=== PATIENT | female | born 1945 | race Caucasian/White ===

== ENCOUNTER 2020-06-30 08:45 | Emergency (ER) | payer OTHER ==
--- OUTSIDE RECORDS SUMMARY | 2020-06-30 08:49 | XMS REPORT | Continuity of Care Document ---
:1945 Author Organization [facility] t Address [address] [place] [address] Care Team Providers Name Role Phone MEGAN Primary Care Physician Unavailable Ruben LAWLER Attending Clinician Veronica TALLEY Attending Clinician Unavailable JETT Attending Clinician Unavailable Radha MELCHOR, L Attending Clinician Unavailable Veronica Talley MD Attending Clinician Josr LAWLER, F Attending Clinician Dany LALWER Attending Clinician Jett COATS Attending Clinician Doctor Unassigned, Name Attending Clinician Unavailable Roxana LAWLER, H Attending Clinician Louie LAWLER Attending Clinician Jennifer MURRAY Attending Clinician Christian LAWLER Attending Clinician Naseem RN, A Attending Clinician Unavailable Chetan COATS Attending Clinician Mariah COATS Attending Clinician Unavailable Clayton MELCHOR Attending Clinician Unavailable Gabe COATS Attending Clinician Diaz MELCHOR Attending Clinician Unavailable Lowell BAKER Attending Clinician Unavailable Megan LAWLER Attending Clinician Bertram RN, A Attending Clinician AHMET Attending Clinician Unavailable Ahmet COATS Attending Clinician Payers Payer Name Policy Type Policy Effective Expiration Source Number Date Date MEDICAREMEDICARE PART A [id number] 2008 MD Purcell AND 00:00:00 [id number] 2007-Pr -[phone] , [place] [id number] 2011 MD Hardik rice TRADITIONALMEDICAID [place] 00:00:00 TRADITIONAL STAR PLUS [id number] 2011-Pre sentMedicaid Problems Condition Condition Condition Status Onset Resolution Last Treating Co mments Source Name Details Category Date Date Treatment Clinician Date Personal Personal Disease Active 2019-03 history of history of 0-14 An derso antineopla antineopla 00:00: n stic stic 00 chemothera chemothera py py Cancer Cancer Disease Active MD with lung with lung 9-13 Mateus rso metastasis metastasis 00:00: n 00 Diaphragma Diaphragma Disease Active M D tic hernia tic hernia 6-10 An derso 00:00: n 00 Gastroesop Gastroesop Disease Active M D hageal hageal 6-10 Anderso reflux reflux 00:00: n disease disease 00 Iron Iron Disease Active MD deficiency deficiency 6-10 An derso 00:00: n 00 Peripheral Peripheral Disease Active M D arterial arterial 6-10 Luis Manuel o occlusive occlusive 00:00: n disease disease 00 Primary Primary Disease Active hyperparat hyperparat 6-10 An derso hyroidism hyroidism 00:00: n 00 Breast Breast Disease Active MD cancer cancer 8-21 Anderso screening screening 00:00: n 00 Portal Portal Disease Active 2016-03 hypertensi hypertensi 0-12 An derso on on 00:00: n 00 Cirrhosis Cirrhosis Disease Active 2016-03 of liver of liver 0-12 Luis Manuel o 00:00: n 00 History of History of Disease Active M D external external 3-25 Luis Manuel o beam beam 00:00: n radiation radiation 00 therapy therapy Current Current Disease Active use of use of 5-31 Anderso antiplatel antiplatel 00:00: n et et 00 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 5-31 Luis Manuel o mellitus mellitus 00:00: n without without 00 complicati complicati on on Bradycardi Bradycardi Disease Active M D a a 07-30 Anderso 00:00: n 00 Hypertensi Hypertensi Disease Active M D on on 07-26 Anderso 00:00: n 00 Coronary Coronary Disease Active arterioscl arterioscl 07-26 An derso erosis erosis 00:00: n 00 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 07-26 Mateus rso 00:00: n 00 Rosacea Rosacea Disease Active 07-26 Anderso 00:00: n 00 Gastric Gastric Disease Active reflux reflux 07-26 Anderso 00:00: n 00 Glaucoma Glaucoma Disease Active 07-26 Anderso 00:00: n 00 Malignant Malignant Disease Active neoplasm neoplasm 07-22 Luis Manuel o of of 00:00: n endometriu endometriu 00 m m H/O: H/O: Disease Active Stroke in Stroke in 07-22 Mateus rso last year last year 00:00: n 00 Abdominal Abdominal Disease Active aortic aortic 07-22 Anderso aneurysm aneurysm 00:00: n without without 00 rupture rupture TIA TIA Disease Active 04-02 Anderso 00:00: n 00 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 0-07 An derso glaucoma glaucoma 00:00: n 00 Renal Renal Disease Active Overview: stone stone 03-02 Kidney Anderso 00:00: stones n 00 again recently, treated with lithotrip sy Cerebrovas Cerebrovas Disease Active M D cular cular Anderso accident accident n (aka (aka Cerebral Cerebral vascular vascular accident) accident) History of History of Disease Resolve 2019-12-14 2019-12-14 malignant malignant d 2-20 00:00:00 22:28:18 Anderso neoplasm neoplasm 00:00: n of of 00 endometriu endometriu m m Alma' Alma' Disease Resolve 2019-12-14 2019-12-14 s s d 3-22 00:00:00 22:28:30 Luis Manuel o thyroiditi thyroiditi 00:00: n s s 00 Metastatic Metastatic Disease Resolve 2019-12-14 2019-12-14 cancer to cancer to d 08-27 00:00:00 22:28:11 Anderso intrapelvi intrapelvi 00:00: n c lymph c lymph 00 nodes nodes Solitary Solitary Disease Resolve 2016-032019-11-14 2019-11-14 pulmonary pulmonary d 0-12 00:00:00 19:03:04 Anderso nodule nodule 00:00: n 00 Allergies, Adverse Reactions, Alerts This patient has no known allergies or adverse reactions. Family History Family Member Diagnosis Comments Start Date Stop Date Source Natural brother Heart disease Natural brother Melanoma MD Issa on Natural daughter Hypertension And karel Natural father Heart disease MD Mateus thomson Natural mother Heart disease MD Mateus thomson Social History Social Habit Start Date Stop Date Quantity Comments Source Sex Assigned At MD Issa on Tobacco use and 2019-11-08 2019-11-08 Never used MD Issa on exposure 00:00:00 00:00:00 Alcohol intake 2019-11-08 2019-11-08 Current MD Hardik rice 00:00:00 00:00:00 non-drinker of alcohol (finding) Smoking Status Start Date Stop Date Source Never smoker MD Purcell Medications Ordered Filled Start Stop Current Ordering Indication Dosage Frequency Signature Comments Components Source Medication Medication Date Date Medication? Clinician (SIG) Name Name brinzolamid 2019-03 Yes 1[drp] Apply 1 M D e (AZOPT) 1 0-20 drop to Umesh so % 18:52: eye twice n ophthalmic 50 daily. suspension BRIMONIDINE 2019-03 Yes 1[drp] Apply 1 M D TARTRATE/TI 0-20 drop to Umesh so MOLOL 18:52: eye twice n (COMBIGAN 50 daily. OPHTHALMIC) doxazosin 2019-03 Yes 2mg Take 2 mg MD (CARDURA) 2 0-20 by mouth Mateus rso mg tablet 18:52: daily. n 50 BIMATOPROST 2019-03 Yes 1[drp] Apply 1 M D (LUMIGAN 0-20 drop to Anderso OPHTHALMIC) 18:52: eye daily. n 50 metoprolol 2019-03 Yes 50mg Take 50 mg M D succinate 0-20 by mouth Luis Manuel o (TOPROL XL) 18:52: daily. n 50 mg 24 hr 50 tablet cholecalcif 2019-03 Yes 2000mg Take 2,000 MD celia, 0-20 mg by Anderso vitamin D3, 18:52: mouth n 2,000 unit 50 daily. cap KRILL/OM3/D 2019- Yes 1{capsu Take 1 M D DISLA/EPA/OM6/ 0-20 le} capsule by An derso LIP/ASTX 18:52: mouth at n (KRILL OIL, 50 bedtime. OMEGA 3 AND 6, ORAL) aspirin 81 2019-03 Yes 81mg Take 81 mg M D mg EC 0-20 by mouth Anderso tablet 18:52: daily. n 50 TURMERIC 2019-03 Yes 1{tbl} Take 1 MD ORAL 0-20 tablet by Anderso 18:52: mouth n 50 daily. ranitidine 2020- No 150mg Take 150 M D (ZANTAC) 8-24 08-24 mg by Anderso 150 MG 17:14: 00:00 mouth as n capsule 35 :00 needed for indigestio n or heartburn. 2020- No Take by 25/iron 8-24 08-24 mouth. Anderso fum/folic/d 17:14: 00:00 n disla 31 :00 (-1 ORAL) nystatin Yes Intertrigo TID to M D (MYCOSTATIN 8-24 rash in Umesh so ) 100,000 00:00: skin n units/g 00 creases cream nystatin Yes History of Apply (MYCOSTATIN 7-01 external topically Anderso ) 100,000 00:00: beam to n units/g 00 radiation affected powder therapy area(s) twice daily. nystatin 2019- No Intertrigo TID to MD (MYCOSTATIN 2-17 08-24 rash in Mateus rso ) 100,000 00:00: 00:00 skin n units/g 00 :00 creases cream LUMIGAN 2016-0 Yes INT 1 GTT 0.01 % 5-29 IN OU HS. Anderso ophthalmic 00:00: n drops 00 Vital Signs Vital Name Observation Time Observation Value Comments Source Systolic blood 2019-11-08 17:20:00 168 mm[Hg] pt's baseline, MD Ching nderson pressure asymptomatic, aware. Diastolic blood 2019-11-08 17:20:00 79 mm[Hg] pt's baseline, MD Purcell pressure asymptomatic, aware. Heart rate 2019-11-08 17:20:00 54 /min asymptomatic, MD Mateus thomson baseline Respiratory rate 2019-11-08 17:20:00 16 /min MD Humza gray Oxygen saturation in 2019-11-08 17:20:00 98 /min MD Purcell Arterial blood by Pulse oximetry Body temperature 2019-11-08 17:10:00 36.5 Tamara MD Humza gray Body weight 2019-10-24 17:09:58 81 kg MD Umesh salguero BMI 2019-10-24 17:09:58 32.45 kg/m2 MD Umesh salguero Procedures Procedure Date / Time Performed Performing Clinician [facility] e AP IHC ER 2019-12-14 20:33:09 Kira Talley MD on AP IHC FL 2019-12-14 20:33:09 Kira Talley MD on AP IHC HER2/PRASAD 2019-11-13 19:19:18 Kira Talley MD on IR CHEST XRAY 1 VIEW 2019-11-08 17:02:01 Wicho Gonzales MD rsberenice POC GLUCOSE SCREEN 2019-11-08 14:42:00 Earline, Lynda Ignacio rsberenice IR CHEST XRAY 1 VIEW 2019-11-08 14:04:18 Wicho Gonzales MD rsberenice IR CT GUIDED BIOPSY 2019-11-08 13:59:51 Kimberlee Streeter MD LUNG/MEDIASTINAL PATHOLOGY BIOPSY 2019-11-08 13:32:00 Kimberlee Streeter MD INTERPRETATION CYTOLOGY IMAGE-GUIDED FNA 2019-11-08 13:31:00 Kimberlee Streeter MD INTERPRETATION POC GLUCOSE SCREEN 2019-11-08 12:34:00 Kimberlee Streeter MD on EKG, 12-LEAD (PORTABLE) 2019-11-08 00:00:00 Iza Benton MD HC 2019-NCOV COVID-19 2019-11-04 15:00:00 Jazmine Lemus MD And erson PROTHROMBIN TIME 2019-11-04 14:40:38 Jazmine Lemus MD COMPLETE BLOOD COUNT W/ 2019-11-04 14:40:38 Bernal, Silva MD A nderson DIFFERENTIAL CARBON DIOXIDE LEVEL 2019-11-04 14:40:38 Silva Bernal MD rson CHLORIDE LEVEL 2019-11-04 14:40:38 Silva Bernal MD SODIUM LEVEL 2019-11-04 14:40:38 Silva Bernal MD POTASSIUM LEVEL 2019-11-04 14:40:38 Silva Bernal MD SERUM CREATININE 2019-11-04 14:40:38 Silva Bernal MD BLOOD UREA NITROGEN 2019-11-04 14:40:38 Silva Bernal MD Umesh son GLUCOSE, RANDOM 2019-11-04 14:40:38 Silva Bernal MD TYPE AND SCREEN 2019-11-04 14:40:38 Silva Bernal MD Results CBC 2019-11-04 14:40:38 Silva Bernal MD MANUAL DIFFERENTIAL 2019-11-04 14:40:38 Silva Bernal MD Umesh son ABORH 2019-11-04 14:40:38 Silva Bernal MD ANTIBODY SCREEN 2019-11-04 14:40:38 Silva Bernal MD SERUM CREATININE 2019-11-04 14:40:38 Silva Bernal MD .GLOMERULAR FILTRATION RATE 2019-11-04 14:40:38 Silva Bernal MD ANION GAP 2019-11-04 14:40:38 Silva Bernal MD CLOT EXPIRATION DATE 2019-11-04 14:40:38 Silva Bernal MD rson TMP INTERPRETATION ANTIBODY 2019-11-04 14:40:38 Silva Bernal MD SCREEN NEGATIVE CT CHEST ABDOMEN PELVIS W 2019-10-28 13:12:59 Kimberlee Streeter MD CONTRAST POC CREATININE 2019-10-28 12:26:00 Kimberlee Streeter MD CANCER ANTIGEN 125 2019-10-24 15:38:37 Kimberlee Streeter MD on CANCER ANTIGEN 125 2019-08-31 14:36:00 Jefferson Yoon MD on Encounters Start End Encounter Admission Attending Care Care Encounter Source Date/Time Date/Time Type Type Clinicians Facility Department ID 2020-02-17 2020-02-17 Outpatient JOSS TALLEY MDA MDA [id number] 00:00:00 00:00:00 KIRA rice 2020-02-17 2020-02-17 Outpatient KIMBERLEE BREWSTER MDA MDA [id number] 00:00:00 00:00:00 Luis Manuel rice 2019-12-19 2019-12-19 Telephone [facility] [id number] 00:00:00 00:00:00 [id number] [id number] [facility] 2019-12-01 2019-12-01 Orders Doctor ZOE [id number] 00:00:00 00:00:00 Only Unassigned, JAYME [id number] Kerr [facility] [id number] 2019-11-29 2019-11-29 Telephone [facility] [id number] 00:00:00 00:00:00 Henrry Marte [id number] [place] [id number] [id number] 220 [facility] 2019-10-03 2019-10-03 Outpatient KIMBERLEE BREWSTER MDA MDA [id number] 00:00:00 00:00:00 Luis Manuel rice 2019-08-31 2019-08-31 Outpatient JOSS TALLEY MDA MDA [id number] 09:38:01 09:38:01 KIRA rice 2019-08-31 2019-08-31 Outpatient JOSS YOON MDA MDA [id number] 09:31:30 09:36:32 JEFFERSON rice Results Test Description Test Time Test Comments Results Result Comments Source Cytology Image-Guided FNA Interpretation 2019-12-22 15:40:00 Test Item Value Reference Range Interpretation Comme nts Addendum z5smwEUrTXXerWK3VCHxOUSun3kyf8ErvBZgxWVmVQomfIThikXpam09jPK0wV25AC5jZVHiFzU9RQTn igN7Gyi5EGGmUDYzvKSzG766w1tie4pedoWulUH7uXcbXJLpDKOsFCanYZMtAjCiOA3kBDJlPGVsDHFa x1Jqi47dheAof5PhOY0iTDVaqDRcTmdrLIFpKJg9RQPMBYboDKTkyTBuiM== 1 (test code = 37) Gross w7enrKFjFHNjg2hfKCFrLdGlKHDQv7lep508sKSfPQreTpUgGiU4bJFvSMHukBMue9E4ZOgpdJLsUqBI preseWk3z1poJ8jcwk4pBS0iJfNoXWPlRATyTAYxlqJnDPPrnTCzGK3urdLEj89ryuq8h1abDStcaJ5v NYRmZKVkdAIhj6T2QDvcfOEoUZKFn6XpsOSdNB4ugqf8i4ppFJzpu1cml8LzQ Descripti hHbSTYwSNDfHZLetyFsMTPytCFgSC5jhjQvdkp8v2xxUDNwZk9bNFAgucpfW6sukxBnjNGaAwYxkXCtK 753icynban2s1qmTQIaEp3lrWuzE9ylsuWdgEEbUqLdeIFzWXPvvETSiZMfwzCxfUL4iCfsRiZkDXGfr 19nraimL8sejeBkcFScPrPexPVzJ2duUj0nC904YQObMAvnb5ret6MiPlZfGD on (test UzSBWuASJcakJrIIJaX18dLJRPM014UCRhDGWwPBKjz7kis2zwQ0vkeaSmoAIoEcKicUArBCEfSLh8wL 2Ci7ckc3mezaIqnOC6WMJrMTRjI1DdDL8jVCYdvONnE5gyPXMyFYunxqWckyS3IUYbdQKeJCboggAfOe NfR7YwJA5dJDdnfWTsZgC5SKDbSIR2BFfgKJPlWNvaKjc5VMJ5A8hvOVP9B1j code = smnHudgCzSGVluHA5NzavriTrQawtV9QyYA13HDurdOYvIbd5BWJpCQe1DUwyVDOiJNIuSgk2RIm8J4n uFRWbCFVsK9RjYN1hQRTmCsj9CKQmDXpjpdVhJNT4MIrlOURsKSM7WBHrlSRjIja4ZFHaXQR1R5ytjaC bjtJ0I4sofPOcUOPrW3pyHGYnBUrnP5XoBU1qOLhoJbh5ZWK7SCtnglCqXEk1 232429826 RUslOHBmTHr9BNAhyROlMkA7AWUjXYC0QPjzjsQdfmK1TEdmwQVcGAfdC6klTDQbYRlyD6ZlCX6nDImt Zem1QHYmPvtwpwOyQqWlIHowXEUiCgZoPVFbkWXpWgQ1OSKlKHYpVCjkdzLvwwVwKKexxUTqIuR5W6ii UXIeQVQuL4LjTH6rGNWhOxz7CXE7WCflhvCcGSxdqvKluiCmAxj4ZWO1PVx4D 4) ttgb2V0aMFfzUClwBdpqzDyoOEfECyrNjAxU681BQKuHVdqAYYszdrlJnr3k2kwHoCrVLXduB4zCSX7h GrephKcjSGkYSjlCeE2G917OWF1DVutOQGfecnpOMf6w5jeKeBvZBWohV1dQSY7nD3XRqxrBJDfscjvM Mu6QJloULPuvawhIeG9APeaBCQlwJh7ANyeWYNdtmJ0WewvAZWlcCmdEVqbTU BfPpifITxpKSZpEMT4MtMmOIPpr5Qczlg4BoXqDuSyDORIDpcuqSOsGCP8YZW4EhTvBLNeVacvZENbBU 4gkVprvKh7rVhpFLXwjfD7uKVgEJhcb2wxKRX8t3zjchxsYUMyUGlfMg7fqAHqpRwbJhUqWBCrVFd4pU 88SXRyoI9wiSMmFIb8YOQunqQwyWnlhE7dZyOaUOWTcUFecG4ytsEwjNNtL8C pXTC3MJCadtLcDADcXzGrZBOpguedAmYMZWBkC1DxyN8cB3xiRPXlUOOxrsYfBJS0wH4zlYneIQAszqj qXHZpH8g0SHifWqEtwFdmNHYpQF4cOUNgISFaWFEtf4Wst50xlkGmSe5jNWKcBFWorWKeQBNiAGZ4WEM 0XLevggWsPWNoPUfbek07SFG0LOCpa8NaP2MqWJykCWWtf0KcP8TiIZmmzAKq hajfwdQwGHHbtb0qzQIxsGk8 Immediate Borderline cellularity, furt her review needed, additional tissue recommended Assessmen t (test code = 9837) Major MALIGNANT A Classific ation (test code = 9839) Diagnosis l5zimSXqUXFytNE6NFZyMCTme5uzs3WvgOSciMAtFLehtKDoviXkrl32pLA2yK73TY5kIEJsSqU6KKWs syB5Hlg5DUAcFYVfqMEkV200h4jil6dqhsCwrVR5yUlrRKBdLWYmEJgmMLShJcEuVY0xYXOeQpxfwdaz tBNssJPpLLHdiP1eDMltKdbrBHCdBZZckXKmKVIplUQusGericjuoSPjMHApr (test qucuLmzTPyqYWBvEpQHFJKRRUJQZQDQPY6RCMFNNtBIQf0SNLFar9KuLSYtsJ4lciFmZNPpzb4= code = 34) Comment h3uwwGUpZUYvtJF3BKWyERKbp8xil2FvvBDbxOLjTTjipUAmexAncz70vNE5aN20AG9fQNLsVmN6HQMi nxT0Zsa8YKMlCZOyaYRjB840h9isr1rpwlOtzQT8lEjkUNGkFKEaMYsaBOSjLgRfLBugTQGpONReHGU9 vXHydTL0rQWqwNfgTUQmjyA0heQhvrOfl7UsZ9xaGWdcZtflsZK3PHWlNZ5gG (test nE1DBxpUk2qEHK9jdVdGUSvBGYzmIFpnEnetx9cNMGtbiooYVY1 code = 9835) Retained/ g6rcaPDvNQZwlFS5SDHxPKAsj0abc4ZjwKDwgVYcNAyuxXPghjFxsu83rBU2rN30XY8vLOWcErH8XIBc ffA5Mbp2YLDoRITudVEiT348e7wng0gvdwTbpUZ4CUOvZQG0ABirzyIoxuC9UHjwgIIbVnO3O66hhOMt ZPzelCDekfsxotBgFXGwP5OmTPCmWEGEYzA3NKRuUBkxzoPfFCDIELWyaKrnC Biomarker ZIMRTduaL7nIH9CVMCZGAkiWYBFRJdweW6jWBACH6flLVF8FKOxT0dqXBDdE5gyVaQxaFIadKXszJ== Testing (test code = 9838) Informati z5htzTOvXDWwpIH7IFKjENNxl1ijf8BqeCCtuXErJEymjHYunlRqpk28vFD7kS70LJ8vMSRlZgK1FXFe xmC8Uxx5WTTwDNKrrGKhZ033MMQcAEJuP59kELLTO259j1oxk5plosCgjKY8rXzkKRLoVOKlLUfuDMes SkTjNpElYQMEu62lBXSpt5WeDXYquE7hkNTlAXxeqyQdtNI0RBtxuqXdUbCzq onal qMfSVAvoV6sCOCrIH2lSBBlpfIhzn7gkgIaJDSkNQCsD2QcblxjaZnuqhSoGAZizq0vhqLvAEB1QFSBB F9DXCKhKIFhm13qYAVzjLzohW5uwDAuxnQiMLZgf7DtqD5maBMTERJdJ3ioQW1eHCyrs5GabVLmgAPkf QU8LNSdc7EoJaMjvjSwxFUwvGKzQ6ShuTatT5avPZVvFJOultVurOTol7DnIG Points OpmKD8kAQhXY3GMpMEs70dEJQlRNGIuwMgNUEjwLoszUU9avX5pW8oIhSznFEiBJUsZUOmRXLnl8lhO6 yeiMHpZZCfqnE9jCT9DVKjhLkkFICkg3AcLO0aFIDrlpVltYtuBHY5tUQdjfSso7D6FWS8DI3PONZrYL Fjk57eAJlvr0VhWQ19n8VnkgklXBR9EOIrH6M1oZRUbiQdl0Y9YAEQb6YwwL8 (test vYWEXFSbrmcQ1EoV2AX0olOVbuT== code = 9836) Lab Abnormal Interpret ation (test code = 12591-2) [facility] Cogluohnrimwpd9230-70-93 23:55:00 Test Item Value Reference Range Interpretation Comments Addendum 2 (test code = z2uavTFwZUNsxCA5NFA 38) gDACuz3zbp1UlkPWyyF HiFSwiiXUryoZfgp87c SE8bO11CJ0oGFPyMeK7 FEFtlrO3Fvj5YAEyCGN fvMLyC901q6hhv3xfos UjdCC6gSdyGPVgWAIxY WluXGZzMjAgVGhlIHR1 hS1sOUOkjUrvSAEdEGD do0FqsJr4RLSje9OxGT NgJNMcFPobWOLrZXL8y B1ngmPtVIpeokUbxhHh WZUbFM68rNDgkRqulzT gLJUefbFaYp5aCHZWCC hyYXJlIGNlbGxzLCBsZ WAoCBUeRU8yRUMtXtfd YXJ9 Addendum 1 (test code = o4ofdZIbKBMiyWM9DCN 37) tOVOzc2ngk2ZfbWPyhR UiXNiycJUjtrBsef70k QU1uH04HC9fEUEsUwF9 NXPuyiL3Qgc5LNSaCMB woNOrG666p9chi8fxpt VkoQT9nOwdRRCjWMGtH WluXGZzMjAgVGhlIHR1 fR3wFSUnaGhrHYPrZRN fVSlwsTi8UDMzp8MqVR YGSeRrZX2qGllqLFXls lxwYXJ9 Diagnosis (test code = 34) i4bsuYJwDVZbjZS6BOX pWQHby5dmk6ItxRUhpI KjUImihIXwwnUnvs74u RJ8zI75PU9dCSPnTtX1 ECWukhP5Pqr0OVElBJP cpEJfP429e4eav2wbgt UthOI2gNpaNCDlBBNcA SxlKZHzExLiLG9sBNJw ZywgcmlnaHQgdXBwZXI ndM8yUGsrYeupmEY4Rx xwYXJcdGFiXHBhclxsa KfcNPuzwC13SpMpNT9I UkxZIERJRkZFUkVOVEl KXVQYXPTCIfIBGc0SWE fuU74JA1sPYDVLCZJVA MVBZR8YDPWLOZXFTIOu RlJPTSBFTkRPTUVUUkl BTCBQUklNQVJZIChTRU YjE76LWREONSqtfVYgZ WkxEHpdeB3pAZOkubWK Um8GE3pmBAAgJS97YtI qHqYvqOQcYBWgv9PeP6 B5GZHeKKznz3wdWTLwE Zown6CuPPcSWFBFJL5S VN7lzAJ0FJuFN6HUI4y KsYmeeSJ5Ou8YpEH9aG xncAv4u9klyQBww1w2K GfsYKM4dYy8YHvzES59 ZIFsBTxvt2hqVAClDCc tn5JpQIjHRIWNXW5BGT 5vpHV6LHiCW4VPBYd5E edptV7HN2ddaMh6HYa4 fXtcZmxkcnNsdCBcJzF vjM6qwRagkU7mKvRwGN xwYXJccGFyfQ== Comment (test code = 9835) k2pxqYXjRSVdqIA9HVR vYEBzv8bnu2PxyOEsdD AgHTmcmSRtlkShao96o PL1dT40VU6dSUGvOkA4 WOFpwtG8Ioi6ZFKoDDU meMCcT813c2gto9vutx TbiGJ7pShiPZXsLFXcB QdaZSKdRiVpCZ2goL7k qOkljD1mfVYsmHYtyUY eyYYtqNDtVWGsf9fixL osyGX8hIVqnNHaa5CsW 5ZynWOxJKFzJHKdh1f6 lCQuVCVqrvDIGQk3NOG qAURuYDwfjJb0MJGdd2 YtXSWUUGPrZB5oAKW9O YIvcMIph1H4oK0gDFMq ZEFnMf48XBXqqKGeyq5 zaXMuXHBhcn0= Gross Description (test e0ahuUQoVFYsq7njNDZ code = [id number]) qVdVfLABTy2ota693sY EvOUadGrUtUaB3rCPfS YKdtUBmm0T5IBwndVYd YrFFcerrjOi5a9amK3e zpg5vVV4xCuGdDTWqCA QwXGZwcnEyIFRpbWVzI O2eebJCd01vpvs3r4zu IVrclA3bXDGyBJGjxGR xg7N7NYqqmHAgRHBFi1 OvdHGhXS0ohnc2e1uhP Eqng4umt4BiFgIcYCUj ZXQwXGZwcnEyIEFyaWF kFV4buvJmlml8y7qiVZ IePz2rUYHpirqfN9dik uEplMJjKmPefIAjQ415 bgkvwyd0r7mhNZGxSu3 rcAadU0kohsGveIMvDr BycTIgVHJveSBNaWNyb oEojMD7mTebQrGyDMZz k03zpyinE9xtntHhwZS vOyLzrNBlF8dyBq6jQ3 97JFNtOIajl9jxh7YiQ mNoYXJzZXQwXGZwcnEy MZQbF20uBNEFP673HUU xRMTuQYSpt7cvh8hrN3 hhcnNldDBcZnBycTIgQ PNtYOn2lV7Ea2did3xz gnQrbXE7XJXoXHWnE9R xOX5iWKRffRQcI4ybHX NoUJhodbSeafN7UQXge CQiPXmxkvRpPnKlM5Sn DZ4lZUhopTRlFqO7YBN sUUB4JBavXWOsKNxdHo i5OQG7O8dxNYX9I8jql fYnsdUzQDFkdIF1Jeye iqAgFzlnL0MuOU69MOa usXUyUkr4DEDzXCy1HB nmBYKdKGIwTcb9UBf2U 9jzOFAvEPObR3TgVU9m VMPgAnj9LJPdFBqpbhB pAHW8TReeCFVeDZB0TY QpfBDcAvv8CTLfFQN4L 7ijofQwgkN8E5neyFNp DIAhX5mePRNuUEhiB7M xWK9pYMkfFha8DJV2KU lsdqEuUHq4DPhbMYUjT Su5YHTyeEGkFeU9SSLo JRC5PHfdvlHiqhB5JTc wxUMvHWgvX2dqZOMsXE isP8FqHI3iWMloDdq3H TIwNztccmVkMjIzXGdy ZWVuMjIzXGJsdWUyMjM 7XHJlZDIzOVxncmVlbj JiPHjojBDdAgA1Z9uhX CNzFVVjB2XtUX4uEYAz Bkf4ZIJ5KIyalxQcZKo zewNwdaUnLoh4ZPH5UG o7Gyhaf1U0lIUqwHNxy HtcczEgaGVhZGluZyAx S738SWByYBbyUZCqkrx cFmh2q2ilTuXiCJDxmJ 1gGWR8rXhvkaLbqDUxQ VxbYiZ6D027EJT2OCgy LMAuwunyYLc7z5qxMlC vHHBcvD3vPZM0sP5SAz meQRLxdwbzZKp0PRrkD ZEfnwnpOoP0BWnzZBAp qId6LHddAJFuxtE0Wjw tYXJndDcyMFxtYXJnYj hwZPuaDZGkSFG1GdIlM IWgg8Lhacw0RvTcMlZl EXUJShvhsIEiQTP1GMF 0ZjFcZXBpYzkxMDFcYW 2knStubQx2mNcaTUKsv cO5lEOxNGdww4pqXQQ0 u2iqcgvnFPMcQZrjRy1 udHRibHtcZjAgQXJpYW h4wA12NFLmjT5xiDWdK Mn4KLYwwjOpqFzxqL3c UzPkDWFTHeQZgZ7jMKP hmNizkUE2vGHlprGgf7 UwBTSbiR4sz2l7EVMdg mTsz0ZtMS7uVURxm1rm U7dyZIGgXLxwOG70LG8 dQREcxe4ntu19lcHkg8 O8MEOvo5V5JGK5tXO4U YpxJGRlPsHagJkwPO40 yIAezSpsa1OjgBl5jJS kIGluIEExLiBYWlxwYX D4OLSrll7EwE== Disclaimer (test code = [id number]) rMRRdJJAgg4fdWJNwuW FuZzEwMzNcZnRuYmpcd LZyCPAzEnXhe9yhd558 kRVdt3eqOGGdMeN7uQN jDMFhcKCiM432HLRdMV xsk8fxk4LvTPLotDKul 8X4PNZKlszrzUj5iQnw U14zn5B0JygiC5ltXKP vVDXiZ4FpXC0vOFMaJm w7LSN0IIC5MWJsPJRaL 4CpXK8lYVAsnNMjBKe7 z3fipJsfTHItFGN9y2m qVQthcfFmGI4zyx0kvA v8q2gtbaLmZSYpRYBer WEWUEZuX3GyfNgjKi4o jRs3fVneWfyiJJJ2Rpy 4QE8ycr88wlx5dMthMY AsfbviQgU6WRnpASZcl lzgFEp3JWbaIWItwQT0 DWKtbEIhT8AiIPBfGN3 voud9HCC3CPawKUQtCq A6WKLjiTGfJGCdsOlqW Qsdd645BSD3KmZqSP1a V2Gkj8K3jB4mcZAqHCA hfFEeEyTzJZQupc0bgY EkMDgpv9ErPHJ8aqE6t PIeoCNjOBTuJX76Fppl b3JzVoahBXK8RIIizrR ug0Vav2laNxMlytUzJ9 okC0UwZSYjXXFkYBFtB zXsajRfq5Mdm3MboRRv qPd5x4izOJUqCKPplYr ye0rhISI4DBWyE6D3xZ Kyg6msYHpyJAYrzOO0i nE6ZSDvfXCtW8BjaD1b DFYnJC3jcad8v4jvQLP 1FIznPJWuXhW9ngO5HL BcaGVhZGVyeTcyMFxmb 238IPI8CiUgVWPyw2Yn P9SxvTicZ90dmNpuC17 xKFRvcSesmJ6qmXmszR 5cZjBcZnMyNFxxbFxwb PLixezoFBjsnrQ8SChg ihyyCPQeAOkeF8jnZeD sQTRgfVyzMAmsv3KpJN UtUOYkLaimvrY8BHGSf 06dZRQxt9EiTNDhwH6k eJIwBFzmarYroXZ6XDy hdmUgYmVlbiBkZXZlbG 7wGTKqIS2hPMEyxiViv n5lzwOrCKAoPKZpI7Jk cmlzdGljcyBkZXRlcm1 ifuIbOLJ5CPQHHU4OXS NkGECiu13hHKQwfApkt V1doCGkozJhWJPoi3No wX4cpBIEVYDmP1lpFT2 uWTrfc4JzvQWanDNjpH Q6EBBpm6FpPnBvmeAys TKjoNGeU4AdgLifI7co WPJmAAVyleSuzMCjr5D hZKQdeEG9wYTkLT3HKm IYr42lNYRfKKNXwiZhZ BUhcPxajUR9ynC8wU5g LiBJZiBhcHBsaWNhYmx cRAKqq278hg7cceF3AF RhBUSrlkwnx5WjJECoF GNclH61YHAeWCTpes3g wruelUYrmrKpU1Dimyc 3oV6zXRWtHDsuEEQhIN ZzMjJcbGFuZzEwMzNca GljaFxmMVxkYmNoXGYx SSynX9ygYvIqMpRzXbx wYXJ9 [address]IR CT GUIDED BIOPSY LUNG/[id number] 19:45:44Date of Procedure: 11/08/19 Attending Physician: Wicho Gonzales MD Wood Scaler: None Pre Procedure Diagnosis: Malignant neoplasm of endometrium; Lung nodule Post Procedure Diagnosis: Unchanged Indication: New mass / nodule for tissue diagnosis The patients clinical history was reviewed in detail. On the basis of available clinical data, the procedure noted above is medically necessary to diagnoseor correct a serious medical condition. The patient is at risk for cancer progression or decline in their medical condition if the procedure is delayed . Protocol Number: N/A Title of Procedure:Percutaneous CT-Guided Biopsy of Right upper lobe nodule Operative Findings: 1. Percutaneous image-guided bi opsy of 2 cm right upper lobe lung lesion.2. The follow-up chest x-rays show no evidence of pneumothorax Consent: The procedure, risks, indications and alternatives were explained. All questions were answered and informed consent was obtained. I have reviewed the history and physical dictated by the mid- level practitioner/fellow. Sedation/Anesthesia: Anesthesia provided by Anesthesia Department.Procedure in Detail: A time out was performed prior to the start of the procedure and the correct patient, procedure, presence of consent, site, and side were confirmed with all members of the team. With the patient in the supine position, the skin overlying the area of interest was prepped and draped in the usual sterile fashion. Lidocaine 1% was used for local anesthesia. Using an anterior approach under CT image-guidance, a 19 gauge needle was advanced down to the lesion in the right lung. An image was obtained and placed into the medical record. Samples were obtained for evaluation. Sampling: Cytology: A 22 gauge needle was used to obtain sample(s) for cytologic assessment. Total number of samples: 2 Core Biopsy: A 20 gauge needle used to obtain samples for surgical pathology evaluation. Total number of samples: 2 Biosentry: N/A Post-biopsy radiographs:1. The initial follow-up chest radiograph demonstrates: No pneumothorax.2. A subsequent follow-up chest radiograph was obtained 3 hours after the initial and demonstrates: No pneumothorax. Specimens Disposition: Diagnostic Biopsy: The biopsy samples were submitted to pathology. Additional Comments: None Estimated BloodLoss: Minimal Immediate Complications: None Disposition: PACU Plan: No follow-up with Interventional Radiology required.MD Page CHEST XRAY 1 [id number] 19:45:44Date of Procedure: 11/08/19 Attending Physician: Wicho Gonzales MD Wood Scaler: None Pre Procedure Diagnosis: Malignant neoplasm of endometrium; Lung nodule Post Procedure Diagnosis: Unchanged Indication: New mass / nodule for tissue diagnosis The patients clinical history was reviewed in detail. O n the basis of available clinical data, the procedure noted above is medically necessary to diagnoseor correct a serious medical condition. The patient is at risk for cancer progression or decline in their medical condition if the procedure is delayed . Protocol Number: N/A Title of Procedure:Percutaneous CT- Guided Biopsy of Right upper lobe nodule Operative Findings: 1. Percutaneous image-guided biopsy of 2 cm right upper lobe lung lesion.2. The follow-up chest x-rays show no evidence of pneumothorax Consent: The procedure, risks, indications and alternatives were explained. All questions were answered and informed consent was obtained. I have reviewed the history and physical dictated by the mid-level practitioner/fellow. Sedation/Anesthesia: Anesthesia provided by Anesthesia Department.Procedure in Detail: A time out was performed prior to the start of the procedure and the correct patient, procedure, presence of consent, site, and side were confirmed with all members of the team. With the patient in the supine position, the skin overlying the area of interest was prepped and draped in the usual sterile fashion. Lidocaine 1% was used for local anesthesia. Using an anterior approach under CT image-guidance, a 19 gauge needle was advanced down to the lesion in the right lung. An image was obtained and placed into the medical record. Samples were obtained for evaluation. Sampling: Cytology: A 22 gauge needle was used to obtain sample(s) for cytologic assessment. Total number of samples: 2 Core Biopsy: A 20 gauge needle used to obtain samples for surgical pathology evaluation. Total number of samples: 2 Biosentry: N/A Post-biopsy radiographs:1. The initial follow-upchest radiograph demonstrates: No pneumothorax.2. A subsequent follow-up chest radiograph was obtained 3 hours after the initial and demonstrates: No pneumothorax. Specimens Disposition: Diagnostic Biopsy: The biopsy samples were submitted to pathology. Additional Comments: None Estimated BloodLoss: Minimal Immediate Complications: None Disposition: PACU Plan: No follow-up with Interventional Radiology required.[facility] Glucose [id number] 14:50:45 Test Item Value Reference Range Interpretation Comments POC Glucose (test code = 117 mg/dL 70-99 H [facility] blood 51093-7) samples, e.g. obtained by fingerstick, ma y have inaccurate results in adalgisa ents with decreased peripheral bloo d flow. PO Sample Type (test BLOOD code = 9554) Lab Interpretation (test Abnormal code = 53843-4) MD PurcellMD COVID-19 (GAYE-CoV-2) PCR [id number] 11:31:55 Test Item Value Reference Interpretation Comments Range COVID19 SARS Pre-Out of OR Procedure Indication (test code = 52947) COVID19 SARS Result Not Detected Not Detected (test code = 05528-7) COVID19 SARS SARS-CoV-2 NOT Detected. Interpretation (test Reference Range: Not code = 06006) Detected Methodology: The Thomas RealTime SARS-CoV-2 assay is a qualitative real-time reverse erp engineer polymerase chain reaction (systems support engineer-PCR) test to detect RNA from SARS-CoV-2 in nasal, nasopharyngeal and oropharyngeal swabs from patients with signs and symptoms of infection who are suspected of COVID-19 by their health care provider. The Thomas RealTime SARS-CoV-2 performed on the [employer] System is a dual target assay with primers and probes for the RdRp and N genes. Results must be interpreted within the context of all relevant clinical and laboratory findings, and epidemiological risk factors. Positive results are indicative of the presence of SARS-CoV-2 RNA; clinical correlation with patient history and other diagnostic information is necessary to determine patient infection status. Positive results do not rule out bacterial infection or co-infection with other viruses. Negative results do not preclude SARS-CoV-2 infection and should not be used as the sole basis for patient management decisions. The Thomas RealTime SARS-CoV-2 assay is for in vitro diagnostic use under FDA Emergency Use Authorization only. Testing is limited to laboratories certified under the Clinical Laboratory Improvement Amendments of 1988 (CLIA), 42U.S.C. 263a, to perform high complexity tests. The Test was performed by the CLIA-certified, high-complexity Molecular [facility] Laboratory ([facility]) at [facility] [place] under the Food and Drug Administration (FDA) s Emergency Use Authorization. Factsheet for patients: https://www.[facility].org/ AbbottFactSheetPatientsFact sheet for healthcare providers: https://www.[facility].org/ AbbottFactSheetHCP Test performed by:[facility] [id number] [place] [address] PoseyCT Chest Abdomen Pelvis with [id number] 14:32:03 1. Increased size and number of pulmonary nodules, suspicious for metastases. 2. New enlarged righthilar lymph node, also suspicious. 3. No evidence of recurrent or metastatic disease in the abdomen or pelvis. 4. Cirrhotic liver morphology, mildly dilated main portal vein, paraesophageal varices, which can be associated with portal hypertension. 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 Recurrence suspected.Comparison: CTchest 04/17/2017. CT chest, abdomen, and pelvis 12/10/2016.Technique: CT of the chest abdomen pelvis with IV and oral contrast.Findings: Chest:The right upper lobe nodule seen on 04/07/2017 has significantly increased in size and now measures 2.1 x 1.8 cm, previously 0.4 cm. Additional new nodules are present bilaterally; for example, a 1.3 cm right upper lobe nodule (4/59). A 1.4 cm right lower lobe nodule (4/86). A 2.5 cm left lower lobe nodule (4/87). No consolidation or effusion.There is a newenlarged 2.3 x 2.9 x 3.4 cm right hilar lymph node (3/58). Otherwise, no enlarged thoracic lymph nodes.The cardiac chamber sizes are normal. No pericardial effusion. Atherosclerotic calcifications of the coronary arteries.Small hiatal hernia.Abdomen and pelvis:Mildly nodular hepatic contour and relative hypertrophy of the left and caudate lobes. There is focal fatty infiltration in segment IV. No suspicious lesion is identified.The main portal vein mildly dilated measuring up to 1 cm in diameter.No biliary ductal dilatation. Several sub-5 mm gallstones in the gallbladder neck (3/197). 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 Stable 2 cm calcified splenic artery aneurysm.The pancreas and adrenal glands are unremarkable.The kidneys enhance symmetrically without hydronephrosis or mass. Stable few too small to characterize hypodensities, statistically cysts.No enlarged lymph nodes in the abdomen or pelvis.No evidence of bowel obstruction.No ascites.No measurable peritoneal nodule.Hysterectomy. No evidence of a pelvic mass.The urinary bladder is unremarkable.Bones:No suspicious osseous lesion.IMPRESSION:1. Increased size and number of pulmonary nodules, suspicious for metastases.2. New enlarged right hilar lymph node, also suspicious.3. No evidence of recurrent or metastatic disease in the abdomen or pelvis.4. Cirrhotic liver morphology, mildly dilated main portal vein, paraesophageal varices, which can be associated with portal hypertension. This findings are stable compared to 12/10/2016.. [facility] [id number] 12:40:39 Test Item Value Reference Range Interpretation Comments POC Crea (test code 1.2 mg/dL 0.6-1.3 Medicati ons, especially = 98527-4) hydroxyurea or supplements, sr ch as ascorbate, can interfere with test resul ts causing a falsely and significantlyhi gher result than exp ected. If a problem is sr spected with a patient' s result, a sample should be sent to the laborato for confirmatory te sting. POC eGFR-AA (test 52 See_Comment L Normal eGF R >= 60 code = 68068-7) mL/min/1.73 m2 The eGFR is calculated u sing the CKD-EPI equatio n. The eGFR declines w ith age. eGFR <60 mL/min /1.73 m2 is considered a s "decreased" Thi s equation should only be used for patients 18 and older. According to e National [employer] on's Kidney Disease Outcome Quality Initiat adina (KDOQI) classif ication and 2012 Kidney Disease Improving Globa l Outcomes (KDIGO) Clinica l Practice Guideline, the stage of CKD should be c ategorized based on estima judit GFR. Stage Descripti on GFR mL/min/1.73 m21 Kidney damage with nor mal or high GFR >= 902 Kidney damage with mil d decrease in GFR 60-89 3a Mild to moderate decrea se in GFR 45-593b Mode rate to severe decrease in GFR 30-444 Severe decrease in GFR 15-29 5 Kidney failure <15 (or dialysis) [Aut omated message] The sy stem which generated this result transmitted ref erence range: >=60 mL/ min/1.73 m2. The referen ce range was not used to interpret this result as normal/abnormal . POC eGFR-SETH (test 45 See_Comment L Normal eG FR >= 60 code = 37736-0) mL/min/1.73 m2 The eGFR is calculated u sing the CKD-EPI equatio n. The eGFR declines w ith age. eGFR <60 mL/min /1.73 m2 is considered a s "decreased" Thi s equation should only be used for patients 18 and older. According to e National [employer] on's Kidney Disease Outcome Quality Initiat adina (KDOQI) classif ication and 2012 Kidney Disease Improving Globa l Outcomes (KDIGO) Clinica l Practice Guideline, the stage of CKD should be c ategorized based on estima judit GFR. Stage Descripti on GFR mL/min/1.73 m21 Kidney damage with nor mal or high GFR >= 902 Kidney damage with mil d decrease in GFR 60-89 3a Mild to moderate decrea se in GFR 45-593b Mode rate to severe decrease in GFR 30-444 Severe decrease in GFR 15-29 5 Kidney failure <15 (or dialysis) [Aut omated message] The sy stem which generated this result transmitted ref erence range: >=60 mL/ min/1.73 m2. The referen ce range was not used to interpret this result as normal/abnormal . POC Clean Dev (test Yes code = 6672) Lab Interpretation Abnormal (test code = 48334-3) MD Purcell
--- NOTE | 2020-06-30 10:47 | RAD REPORT ---
EXAM DESCRIPTION: RAD - Wrist Right 3 View - 06/30/2020 9:25 am CLINICAL HISTORY: PAINfall, wrist pain COMPARISON: No comparisons FINDINGS: Transverse fracture of the distal radius is present in the metaphyseal region. There is im paction along the dorsal margin with a very minimal 5 degree dorsal angulation. No pathologic compone nt or distraction along the fracture line. An oblique fracture is present through the ulna styloid wi thout angulation deformity or significant distraction. Bone density adjacent to the ulna styloid may be from a remote injury. There is no dislocation or periosteal reaction noted. No foreign body or oth er soft tissue abnormality. IMPRESSION: Distal right radius fracture with mild impaction along the dorsal margin and very minima l dorsal angulation.
--- NOTE | 2020-06-30 10:48 | RAD REPORT ---
EXAM DESCRIPTION: RAD - Elbow Right 3 View - 06/30/2020 9:25 am CLINICAL HISTORY: PAIN, fall, elbow pain COMPARISON: No comparisons FINDINGS: No fracture is identified and no elevated posterior fat pad. There is no dislocation or pe riosteal reaction noted. No foreign body or other soft tissue abnormality. No other significant findi ng. IMPRESSION: Negative right elbow examination.
[2020-06-30] MEDS ORDERED: LIDOCAINE 2% MPF 5 ML VIAL ONE (10:49)
--- NOTE | 2020-06-30 12:50 | EDPHYS ---
Physician Documentation [facility] Name: Pebbles Leo Age: 74 yrs Sex: Female : 1945 Arrival Date: 06/30/2020 Time: 08:47 Bed 14 Private MD: Brandt Redd ED Physician Derek Capellan HPI: 06/30 12:49 This 74 yrs old Female presents to ER via Ambulatory with complaints of Fall pm1 Injury, Elbow Injury, Wrist Pain. 12:49 Details of fall: The patient fell from a height, chair. Onset: The symptoms/episode pm1 began/occurred today. Associated injuries: The patient sustained right arm, abrasion, right wrist, swelling, Pain. Severity of symptoms: in the emergency department the symptoms are unchanged. The patient has experienced a previous episode, many years ago, Right wrist fracture. The patient has not recently seen a physician. Patient was standing of a lawn chair to reach item in the cabinet. Patient fell to her right side and is presenting with right wrist and elbow pain. Patient hit the back of her head. No headache, neck pain, LOC. Historical: - Allergies: 08:54 Sulfa (Sulfonamide Antibiotics); aa5 08:54 Opioid (Vomiting); aa5 - PMHx: 08:54 Hypertension; aa5 - PSHx: 08:54 Lithotripsy; aa5 - Immunization history:: Adult Immunizations unknown. - Social history:: Smoking status: Patient denies any tobacco usage or history of. ROS: 12:49 Constitutional: Negative for fever, chills, and weight loss, Neck: Negative for injury, pm1 pain, and swelling, Cardiovascular: Negative for chest pain, palpitations, and edema, Respiratory: Negative for shortness of breath, cough, wheezing, and pleuritic chest pain, Abdomen/GI: Negative for abdominal pain, nausea, vomiting, diarrhea, and constipation, Back: Negative for injury and pain. 12:49 Neuro: Negative for headache, weakness, numbness, tingling, and seizure. 12:49 MS/extremity: Positive for pain, swelling, tenderness, of the right wrist, Positive for abrasion right elbow, Negative for laceration, puncture. 12:49 Skin: Positive for abrasion(s), of the right elbow. Exam: 12:49 Constitutional: This is a well developed, well nourished patient who is awake, alert, pm1 and in no acute distress. Head/Face: Normocephalic, atraumatic. Neck: Trachea midline, no thyromegaly or masses palpated, and no cervical lymphadenopathy. Supple, full range of motion without nuchal rigidity, or vertebral point tenderness. No Meningismus. 12:49 Back: No spinal tenderness. No costovertebral tenderness. Full range of motion. 12:49 Chest/axilla: Inspection: normal, Palpation: is normal, no crepitus, no tenderness. 12:49 Cardiovascular: Rate: normal, Rhythm: regular, Pulses: no pulse deficits are appreciated, Edema: is not appreciated. 12:49 Respiratory: Exam negative for acute changes, respiratory distress, shortness of breath. 12:49 Abdomen/GI: Inspection: abdomen appears normal, Palpation: abdomen is soft and non-tender, in all quadrants. 12:49 Musculoskeletal/extremity: Extremities: grossly normal except: noted in the right wrist: swelling, tenderness, There is no evidence of puncture, noted in the right elbow: abrasion, no evidence of decreased ROM, deformity, swelling, tenderness, Circulation is intact in all extremities. 12:49 Skin: Appearance: normal except for affected area, injury, abrasion(s), small abrasion noted, of the right elbow. Vital Signs: 08:55 BP 174 / 86; Pulse 60; Resp 16 S; Temp 97.8(O); Pulse Ox 98% on R/A; aa5 12:58 BP 161 / 84; Pulse 62; Resp 16; Pulse Ox 100% on R/A; zb Procedures: 12:49 Reduction: of the right wrist, using finger traps and traction, Immobilized with pm1 Orthoglass splint. Patient tolerated well. Post reduction film - reveals improved alignment. hematoma block with lidocaine 1% 4 mL. MDM: 09:46 Patient medically screened. pm1 09:54 Refusal of service: The patient/guardian displays adequate decision making capability pm1 and despite a detailed discussion of alternatives, benefits, risks, and consequences refuses: CT Scan, Medications, Patient refused CT head. Patient also refused pain medications I offered. 12:46 Counseling: I had a detailed discussion with the patient and/or guardian regarding: the pm1 historical points, exam findings, and any diagnostic results supporting the discharge/admit diagnosis, radiology results, the need for outpatient follow up, for definitive care, a orthopedic surgeon, to return to the emergency department if symptoms worsen or persist or if there are any questions or concerns that arise at home. 12:49 Data interpreted: Pulse oximetry: on room air is 100 %. Interpretation: normal. pm1 15:43 Data reviewed: vital signs. pm1 06/30 08:56 Order name: Elbow Right 3 View XRAY; Complete Time: 10:57 aa5 06/30 08:56 Order name: Wrist Right 3 View XRAY; Complete Time: 10:57 aa5 06/30 10:26 Order name: Splint - Sugar Tong - Forearm; Complete Time: 11:21 pm1 Administered Medications: 10:45 Drug: Lidocaine (1 %) 5 ml Volume: 5 ml; Route: Infiltration; kg 12:57 Follow up: Response: No adverse reaction zb Disposition: 15:15 Co-signature as Attending Physician, Derek Capellan MD. rn Disposition: 06/30/20 12:49 Discharged to Home. Impression: Closed right minimally displaced distal radius fracture , Abrasion of right elbow, Nondisplaced fracture of right ulna styloid process. - Condition is Stable. - Discharge Instructions: Cast or Splint Care, Adult, Wrist Fracture Treated With Immobilization, How to Use a Sling. - Prescriptions for Tramadol 50 mg Oral Tablet - take 1 tablet by ORAL route every 8 hours as needed; 12 tablet. - Medication Reconciliation Form, Thank You Letter, Antibiotic Education, Prescription Opioid Use form. - Follow up: Emergency Department; When: As needed; Reason: Worsening of condition. Follow up: Christ Yanez MD; When: 2 - 3 days; Reason: Recheck today's complaints, Continuance of care, Re-evaluation by your physician. - Problem is new. - Symptoms have improved. Signatures: Dispatcher [employer] EDMS Derek Capellan MD MD rn Calderon, Audri RN RN aa5 Kofi Sanford NP [facility]IAN pm1 Kenyetta Costa RN RN zb Laquita Butts kg Corrections: (The following items were deleted from the chart) 12:49 12:49 06/30/2020 12:49 Discharged to Home. Impression: Abrasion of right elbow; Closed pm1 right minimally displaced distal radius fracture ; Nondisplaced fracture of right ulna styloid process. Condition is Stable. Forms are Medication Reconciliation Form, Thank You Letter, Antibiotic Education, Prescription Opioid Use. Follow up: Emergency Department; When: As needed; Reason: Worsening of condition. Follow up: Christ Yanez; When: 2 - 3 days; Reason: Recheck today's complaints, Continuance of care, Re-evaluation by your physician. Problem is new. Symptoms have improved. pm1 12:59 12:49 06/30/2020 12:49 Discharged to Home. Impression: Closed right minimally displaced zb distal radius fracture Abrasion of right elbow; Nondisplaced fracture of right ulna styloid process. Condition is Stable. Forms are Medication Reconciliation Form, Thank You Letter, Antibiotic Education, Prescription Opioid Use. Follow up: Emergency Department; When: As needed; Reason: Worsening of condition. Follow up: Christ Yanez; When: 2 - 3 days; Reason: Recheck today's complaints, Continuance of care, Re-evaluation by your physician. Problem is new. Symptoms have improved. pm1
--- NOTE | 2020-06-30 12:50 | ER ---
Nurse's Notes [facility] Name: Pebbles Leo Age: 74 yrs Sex: Female : 1945 Arrival Date: 06/30/2020 Time: 08:47 Bed 14 Private MD: Brandt Redd Diagnosis: Abrasion of right elbow;Closed right minimally displaced distal radius fracture ;Nondisplaced fracture of right ulna styloid process Presentation: 06/30 08:54 Chief complaint: Patient states: "I was standing on a chair looking into a cabinet and aa5 I fell". Pt denies head injury, negative LOC. Reports pain to right elbow and right wrist. Coronavirus screen: At this time, the client does not indicate any symptoms associated with coronavirus-19. Ebola Screen: Patient negative for fever greater than or equal to 101.5 degrees Fahrenheit, and additional compatible Ebola Virus Disease symptoms. Initial Sepsis Screen: Does the patient meet any 2 criteria? No. Patient's initial sepsis screen is negative. Does the patient have a suspected source of infection? No. Patient's initial sepsis screen is negative. Risk Assessment: Do you want to hurt yourself or someone else? Patient reports no desire to harm self or others. Onset of symptoms was June 2020. 08:54 Method Of Arrival: Ambulatory aa5 08:54 Acuity: KEIRY 3 aa5 Historical: - Allergies: 08:54 Sulfa (Sulfonamide Antibiotics); aa5 08:54 Opioid (Vomiting); aa5 - PMHx: 08:54 Hypertension; aa5 - PSHx: 08:54 Lithotripsy; aa5 - Immunization history:: Adult Immunizations unknown. - Social history:: Smoking status: Patient denies any tobacco usage or history of. Screenin:42 Abuse screen: Denies threats or abuse. Denies injuries from another. Nutritional zb screening: No deficits noted. Tuberculosis screening: No symptoms or risk factors identified. Fall Risk Fall in past 12 months (25 points). No secondary diagnosis (0 pts). IV access (20 points). Ambulatory Aid- None/Bed Rest/Nurse Assist (0 pts). Gait- Normal/Bed Rest/Wheelchair (0 pts) Mental Status- Oriented to own ability (0 pts). Total Munoz Fall Scale indicates High Risk Score (45 or more points). Fall prevention measures have been instituted. Side Rails Up X 2 Placed Close to Nursing Station Frequent Obs/Assessments Occuring Family Present and informed to notify staff if the need to leave the bedside As available patient and family educated on Fall Prevention Program and Strategies. Assessment: 11:32 General: Appears in no apparent distress. Behavior is calm, cooperative, appropriate kg for age, quiet. Pain: Complains of pain in right arm Pain currently is 4 out of 10 on a pain scale. at worst was 9 out of 10 on a pain scale. level that patient reports is acceptable is 3 out of 10 on a pain scale. Quality of pain is described as aching, tender. 11:33 Neuro: No deficits noted. Cardiovascular: No deficits noted. Respiratory: No deficits kg noted. GI: No deficits noted. : No deficits noted. EENT: No deficits noted. Derm: No deficits noted. Musculoskeletal: Bony deformity noted of right arm Swelling present in right arm Tenderness present in right arm Reports pain in right arm since 8am after fall/ . Pain is 4 out of 10 on a pain scale. 12:09 Reassessment: Patient appears in no apparent distress at this time. Patient and/or zb family updated on plan of care and expected duration. Pain level reassessed. Patient is alert, oriented x 3, equal unlabored respirations, skin warm/dry/pink. ECP at bedside discussing care with patient and making adjustments and placing splint. 12:16 Reassessment: splint placement completed. zb 12:26 Reassessment: x-ray at bedside. zb Vital Signs: 08:55 BP 174 / 86; Pulse 60; Resp 16 S; Temp 97.8(O); Pulse Ox 98% on R/A; aa5 12:58 BP 161 / 84; Pulse 62; Resp 16; Pulse Ox 100% on R/A; zb ED Course: 08:47 Patient arrived in ED. am2 08:47 Brandt Redd DO is Private Physician. am2 08:54 Arm band placed on. aa5 08:55 Triage completed. aa5 09:25 Elbow Right 3 View XRAY In Process Unspecified. EDMS 09:25 Wrist Right 3 View XRAY In Process Unspecified. EDMS 09:44 Kofi Sanford NP is PHCP. pm1 09:44 Derek Capellan MD is Attending Physician. pm1 10:24 Laquita Butts is Primary Nurse. kg 12:07 Report received from JILL Coelho. zb 12:34 Wrist Left (2 View) XRAY In Process Unspecified. EDMS 12:42 Patient has correct armband on for positive identification. Door closed. Noise zb minimized. sling placed. . 12:43 Primary Nurse role handed off by Laquita Butts zb 12:43 Kenyetta Costa RN is Primary Nurse. zb 12:47 Christ Yanez MD is Referral Physician. pm1 12:58 No provider procedures requiring assistance completed. Patient did not have IV access zb during this emergency room visit. Administered Medications: 10:45 Drug: Lidocaine (1 %) 5 ml Volume: 5 ml; Route: Infiltration; kg 12:57 Follow up: Response: No adverse reaction zb Outcome: 12:49 Discharge ordered by MD. pm1 12:59 Discharged to home ambulatory, with family. zb 12:59 Condition: improved 12:59 Discharge instructions given to patient, family, Instructed on discharge instructions, follow up and referral plans. medication usage, Demonstrated understanding of instructions, follow-up care, medications, Prescriptions given X 1. 12:59 Patient left the ED. zb Signatures: Dispatcher [employer] [facility] Kaitlynn Almendarez RN RN aa5 Kofi Sanford, [employer] pm1 Diane Beltran am2 Kenyetta Costa RN RN zb Laquita Butts kg Corrections: (The following items were deleted from the chart) 09:02 08:54 Acuity: KEIRY 4 aa5 aa5
[2020-06-30 13:04] VITALS: TEMP 97.8
[2020-06-30 13:07] VITALS: BP 161/84; O2SAT 100
--- NOTE | 2020-06-30 14:53 | RAD REPORT ---
EXAM DESCRIPTION: RAD - Wrist Right 2 View - 06/30/2020 2:46 pm CLINICAL HISTORY: post reduction, right radius fracture COMPARISON: Wrist Right 3 View dated 06/30/2020 FINDINGS: Cast material is in place. Fracture has been reduced to anatomic alignment and position. No new or suspicious findings from prior imaging.
== END 2020-06-30 12:59 | disposition home or self-care (01) ==
LOC: ER 08:45
PROC: 0PSHXZZ Reposition Right Radius, External Approach (ICD-10-PCS; principal; 2020-06-30)
PROC: 0PSKXZZ Reposition Right Ulna, External Approach (ICD-10-PCS; 2020-06-30)
DX: S52.501A Unspecified fracture of the lower end of right radius, initial encounter for closed fracture (principal); S52.614A Nondisplaced fracture of right ulna styloid process, initial encounter for closed fracture; W07.XXXA Fall from chair, initial encounter; Y93.89 Activity, other specified; I10 Essential (primary) hypertension; Z88.2 Allergy status to sulfonamides; Z88.5 Allergy status to narcotic agent
CPT/HCPCS: 99283